=== PATIENT | male | born 1980 | race Hispanic/Latino ===

== ENCOUNTER 2021-11-08 17:57 | Observation (INO) | payer SELFPAY ==
[2021-11-08 18:22] LABS: #Basophils 0.1 10x3/uL (0.0-0.2); #Eosinphils 0.1 10x3/uL (0.0-0.5); #Monocytes 0.5 10x3/uL (0.0-1.1); #Neutrophils 4.5 10x3/uL (1.5-8.4); %Basophils 0.6 % (0.0-2.0); %Eosinophils 0.6 % (0.0-6.0); %Lymphocytes 37.5 % (18.0-47.0); %Monocytes 6.5 % (0.0-10.0); %Neutrophils 54.4 % (40.0-75.0); Hemoglobin 15.7 g/dL (13.5-17.5); Mean Corpuscular HGB CONC 35.7 g/dL (32.0-36.0); Mean Corpuscular Hemoglobin 29.3 pg (27.0-33.0); Mean Corpuscular Volume 82.2 fl (81.2-95.1); Mean Platelet Volume 9.8 fl (7.4-10.4); Platelet Count 352 10x3/uL (150-450); RBC Distribution Width 12.1 % (11.5-14.5); Red Blood Cell (RBC) Count 5.35 10x6/uL (4.32-5.72); White Blood Cell (WBC) Count 8.3 10x3/uL (3.5-10.5)
[2021-11-08 18:32] LABS: ALT (SGPT) 25 U/L (8-55); AST (SGOT) 12 U/L (5-34); Albumin 4.4 g/dL (3.5-5.0); Alkaline Phosphatase 194 U/L (40-110); Anion Gap 13 mmol/L (10-20); BUN (Urea Nitrogen) 8 mg/dL (8.9-20.6); Bilirubin, Total 0.5 mg/dL (0.2-1.2); Calc. Creatinine Clearance 0 mL/min (70-130); Calcium 9.7 mg/dL (7.8-10.44); Carbon Dioxide 27 mmol/L (22-29); Chloride 98 mmol/L (98-107); Globulin 2.8 g/dL (2.4-3.5); Glucose 495 mg/dL (70-105); Magnesium 2.1 mg/dL (1.6-2.6); Protein, Total 7.2 g/dL (6.0-8.3); Sodium 133 mmol/L (136-145)
[2021-11-08 21:42] VITALS: BMI 33.7
[2021-11-08 21:59] LABS: Troponin I Less than 0.010 ng/mL (< 0.028)
[2021-11-08] MEDS: Sodium Chloride 0.9% 1,000 ML IV SCH (23:36)
[2021-11-09 01:05] LABS: Troponin I Less than 0.010 ng/mL (< 0.028)
[2021-11-09] MEDS ORDERED: Dextrose 5% in Water 1,000 ML IV PRN (03:28)
[2021-11-09] MEDS ORDERED: Dextrose 50% Abboject 50 ML SYRINGE SLOW IVP PRN (03:28)
[2021-11-09 04:40] LABS: #Eosinphils 0.1 10x3/uL (0.0-0.5); #Monocytes 0.5 10x3/uL (0.0-1.1); #Neutrophils 3.7 10x3/uL (1.5-8.4); %Basophils 0.6 % (0.0-2.0); %Monocytes 6.5 % (0.0-10.0); %Neutrophils 52.8 % (40.0-75.0); Hemoglobin 13.9 g/dL (13.5-17.5); Mean Corpuscular HGB CONC 35.5 g/dL (32.0-36.0); Mean Corpuscular Hemoglobin 29.3 pg (27.0-33.0); Mean Corpuscular Volume 82.5 fl (81.2-95.1); Mean Platelet Volume 9.9 fl (7.4-10.4); Platelet Count 270 10x3/uL (150-450); RBC Distribution Width 11.9 % (11.5-14.5); Red Blood Cell (RBC) Count 4.74 10x6/uL (4.32-5.72); White Blood Cell (WBC) Count 6.9 10x3/uL (3.5-10.5)
[2021-11-09 04:54] LABS: SARS-CoV-2 NAA Rapid Test Not Detected (NotDetected)
[2021-11-09 05:05] LABS: Anion Gap 13 mmol/L (10-20); BUN (Urea Nitrogen) 7 mg/dL (8.9-20.6); Calc. Creatinine Clearance 214 mL/min (70-130); Calcium 8.5 mg/dL (7.8-10.44); Carbon Dioxide 23 mmol/L (22-29); Cardiac Risk 4.5 (Less than 4.5); Chloride 106 mmol/L (98-107); Cholesterol 149 mg/dl (< 200 Desired); Glucose 295 mg/dL (70-105); HDL Cholesterol 33 mg/dL (>60 Neg Risk); LDL Cholesterol, Calculated 87 mg/dL; Potassium 3.9 mmol/L (3.5-5.1); Sodium 138 mmol/L (136-145); Triglycerides 146 mg/dL (Less than 150)
[2021-11-09] MEDS: Sodium Chloride 0.9% 1,000 ML IV SCH (05:32)
[2021-11-09] MEDS: HumaLOG 300 UNITS/3 ML VIAL SC PRN ×3 (05:33→11:43)
[2021-11-09] MEDS ORDERED: Enoxaparin Sodium 40 MG/0.4 ML SYRINGE SC SCH (09:00)
[2021-11-09] MEDS ORDERED: Aspirin Chewable 81 MG TAB PO SCH (09:00)
[2021-11-09] MEDS ORDERED: Ibuprofen 400 MG TAB PO SCH (11:45)
[2021-11-09 11:47] VITALS: BP 134/80
[2021-11-09 13:11] VITALS: TEMP 97.6
[2021-11-09] MEDS ORDERED: metFORMIN 500 MG TAB PO SCH (17:00)
[2021-11-09] MEDS ORDERED: glipiZIDE 10 MG TAB PO SCH (21:00)
[2021-11-10] MEDS ORDERED: Lantus 1000 UNITS/10 ML VIAL SC SCH (09:00)
== END 2021-11-09 14:40 | disposition home or self-care (01) ==
LOC: CSHERS 17:57 → CSHTELE 21:38
PROVIDERS: ADMIT Hospitalist; ATTEND Hospitalist
DX: R55 Syncope and collapse (principal); R07.89 Other chest pain; E11.65 Type 2 diabetes mellitus with hyperglycemia; G40.909 Epilepsy, unspecified, not intractable, without status epilepticus; F17.210 Nicotine dependence, cigarettes, uncomplicated; E86.9 Volume depletion, unspecified; Z91.14 Patient's other noncompliance with medication regimen; Z79.4 Long term (current) use of insulin; Z79.84 Long term (current) use of oral hypoglycemic drugs; Z79.899 Other long term (current) drug therapy; Z20.822 Contact with and (suspected) exposure to COVID-19
CPT/HCPCS: 36415; 36416; 70450; 71045; 80048; 80053; 80061; 82550; 83605; 83735; 84484; 85025; 93005; 93010; 93306; 96360; 96361; G0378; J1815; J7050; U0002

== ENCOUNTER 2023-03-27 12:58 | Emergency (ER) | payer BC, OTHER ==
[2023-03-27 14:01] LABS: #Eosinphils 0.1 10x3/uL (0.0-0.5); #Monocytes 0.7 10x3/uL (0.0-1.1); #Neutrophils 7.6 10x3/uL (1.5-8.4); %Basophils 0.4 % (0.0-2.0); %Eosinophils 0.6 % (0.0-6.0); %Lymphocytes 20.4 % (18.0-47.0); %Monocytes 6.6 % (0.0-10.0); %Neutrophils 71.7 % (40.0-75.0); Hematocrit 40.3 % (38.8-50.0); Hemoglobin 14.2 g/dL (13.5-17.5); Mean Corpuscular HGB CONC 35.2 g/dL (32.0-36.0); Mean Corpuscular Hemoglobin 28.9 pg (27.0-33.0); Mean Corpuscular Volume 81.9 fl (81.2-95.1); Mean Platelet Volume 9.5 fl (7.4-10.4); Platelet Count 380 10x3/uL (150-450); Red Blood Cell (RBC) Count 4.92 10x6/uL (4.32-5.72); White Blood Cell (WBC) Count 10.5 10x3/uL (3.5-10.5)
[2023-03-27 14:56] LABS: ALT (SGPT) 21 U/L (8-55); AST (SGOT) 13 U/L (5-34); Alkaline Phosphatase 228 U/L (40-110); Anion Gap 13 mmol/L (10-20); BUN (Urea Nitrogen) 11 mg/dL (8.9-20.6); Bilirubin, Total 0.4 mg/dL (0.2-1.2); Calc. Creatinine Clearance 0 mL/min (70-130); Calcium 9.4 mg/dL (7.8-10.44); Carbon Dioxide 24 mmol/L (22-29); Chloride 102 mmol/L (98-107); Estimated GFR 116; Globulin 3.5 g/dL (2.4-3.5); Potassium 4.2 mmol/L (3.5-5.1); Protein, Total 7.5 g/dL (6.0-8.3); Sodium 135 mmol/L (136-145)
[2023-03-27 15:23] LABS: Glucose 419 mg/dL (70-105)
== END 2023-03-27 16:14 | disposition home or self-care (01) ==
LOC: CSHERS 12:58
DX: E11.621 Type 2 diabetes mellitus with foot ulcer (principal); E11.65 Type 2 diabetes mellitus with hyperglycemia
CPT/HCPCS: 80053; 82010; 83605; 85025; 87070; 87077; 87186; 87205; 99284

== ENCOUNTER 2025-02-02 08:16 | Emergency (ER) | payer SELFPAY ==
[2025-02-02] MEDS ORDERED: Droperidol 5 MG/2 ML VIAL ONE (08:56)
[2025-02-02 09:20] LABS: #Basophils 0.04 10x3/uL (0.0-0.2); #Eosinophils 0.08 10x3/uL (0.0-0.5); #Monocytes 0.34 10x3/uL (0.0-1.1); #Neutrophils 4.57 10x3/uL (1.5-8.4); %Basophils 0.6 % (0.0-2.0); %Eosinophils 1.2 % (0.0-6.0); %Lymphocytes 25.9 % (18.0-47.0); %Monocytes 5.0 % (0.0-10.0); %Neutrophils 67.2 % (40.0-75.0); Hematocrit 37.3 % (38.8-50.0); Hemoglobin 12.4 g/dL (13.5-17.5); Mean Corpuscular Hemoglobin 26.6 pg (27.0-33.0); Mean Corpuscular Volume 80.0 fL (81.2-95.1); Platelet Count 339 10x3/uL (150-450); Red Blood Cell (RBC) Count 4.66 10x6/uL (4.32-5.72); White Blood Cell (WBC) Count 6.80 10x3/uL (3.5-10.5)
[2025-02-02 09:38] LABS: ALT (SGPT) 25 U/L (Less than 45); AST (SGOT) 12 U/L (11-34); Albumin 3.5 g/dL (3.1-4.5); Alkaline Phosphatase 184 U/L (40-110); Anion Gap 13 mmol/L (10-20); BUN (Urea Nitrogen) 19 mg/dL (8.9-20.6); Bilirubin, Total 0.3 mg/dL (0.3-1.2); Calc. Creatinine Clearance 0 mL/min (70-130); Calcium 9.1 mg/dL (7.8-10.44); Carbon Dioxide 26 mmol/L (22-29); Chloride 98 mmol/L (98-107); Globulin 4.2 g/dL (2.4-3.5); Lipase 80 U/L (8-78); Potassium 4.3 mmol/L (3.5-5.1); Sodium 133 mmol/L (136-145)
[2025-02-02 09:47] LABS: Troponin I Less than 0.010 ng/mL (< 0.028)
[2025-02-02 09:49] LABS: Glucose 471 mg/dL (70-105)
== END 2025-02-02 10:30 | disposition home or self-care (01) ==
LOC: CSHERS 08:16
DX: E11.65 Type 2 diabetes mellitus with hyperglycemia (principal); R19.7 Diarrhea, unspecified
CPT/HCPCS: 36416; 70450; 76705; 80053; 83605; 83690; 84484; 85025; 93005; 94760; 96361; 96374; 96375; J1790; J1815; J3010